=== PATIENT | female | born 1975 | race Caucasian/White ===

== ENCOUNTER 2018-08-12 12:09 | Observation (INO) ==
--- NOTE | 2018-08-11 13:25 | MH ---
cc: Stefano Castillo MD DATE OF ADMISSION: 08/12/2018 ADMITTING DIAGNOSIS: Menorrhagia, dysmenorrhea, and left hydrosalpinx. HISTORY OF PRESENT ILLNESS: The patient is a 43-year-old, , white female, para 4-0-2-3 with history of menstrual flow, menstrual pain refractory to medical therapy. Ultrasound obtained on 03/16/2018 had a uterus that measured 9.6 cm with a left hydrosalpinx. Her laboratory studies have been normal. Her Pap smear was normal. Her endometrial biopsy from 07/2017 was benign. She is now admitted for hysterectomy. PAST SURGICAL HISTORY: She had a LEEP procedure in 1999, normal Pap since that time. She had a right ectopic removed in 2007, she had a spontaneous in 2007, did not require D and C. She has had 4 term deliveries. In 1997 she had infant with trisomy 18 that shortly after delivery. ALLERGIES: PENICILLIN, DUST. TRANSFUSIONS: None. SOCIAL HISTORY: She is . She is employed at [employer]. Alcohol, tobacco, and drugs are none. FAMILY HISTORY: Noncontributory. REVIEW OF SYSTEMS: Negative. PHYSICAL EXAMINATION: GENERAL: This is a well-nourished, well-developed, white female. VITAL SIGNS: Stable. HEENT: Normal. CHEST: Clear. HEART: Regular rate. BREASTS: Symmetrical. ABDOMEN: Benign. PELVIC: Vagina is normal. Cervix normal. Uterus is enlarged, about 12 week size. Adnexa nonpalpable. ASSESSMENT: As above. PLAN: She underwent with removal of the dilated tube, ovarian sparing if normal. While in the office the risk and benefits and complications explained and accepted. Should she require a larger incision surgery, she is aware this would be a longer recovery. The patient would like to proceed. Stefano Castillo MD [facility]/ , 12:51 PM , 01:01 PM
[2018-08-12] MEDS ORDERED: Chlorhexidine Gluconate 2% 1 Pack (2 Cloths) TOPICAL SCH (12:56)
[2018-08-12] MEDS ORDERED: Metoprolol Tartrate 25 MG Tablet PO SCH (12:56)
[2018-08-12] MEDS ORDERED: Sodium Chlor 0.9% Inj 500 ML IV.SIG SCH (13:00)
[2018-08-12] MEDS ORDERED: Clindamycin 900 mg/NS Premix 900 MG/50 ML PIGGYBACK IV.SIG ONE (14:00)
[2018-08-12] MEDS ORDERED: Clindamycin 900 mg/NS Premix 900 MG/50 ML PIGGYBACK IV.SIG SCH (14:00)
[2018-08-12] MEDS ORDERED: Sugammadex Inj 200 MG/2 ML Vial IV.PUSH ONE (14:30)
[2018-08-12] MEDS ORDERED: Ketorolac Inj 30 MG/ML (IVP) Vial IV.PUSH ONE (14:52)
[2018-08-12] MEDS ORDERED: Lidocaine PF 1% Inj 5 ML Syringe INFILTRATN ONE (14:52)
[2018-08-12] MEDS ORDERED: Clindamycin Inj 900 MG/6 ML Vial ONE (14:55)
[2018-08-12] MEDS ORDERED: HYDROmorphone PF Inj 1 MG/ML Ampul IV.PUSH PRN (16:12)
[2018-08-12] MEDS ORDERED: Zolpidem Tartrate 5 MG Tablet PO PRN (16:12)
[2018-08-12] MEDS ORDERED: Bupivacaine Liposomal PF 1.3% Inj 20 ML Vial ONE (16:19)
[2018-08-12] MEDS ORDERED: Dextrose 5%/NaCl 0.45% Inj 1,000 ML IV.CONT SCH (16:30)
[2018-08-12] MEDS ORDERED: fentaNYL Citrate Inj 100 MCG/2 ML Ampul ONE (16:46)
[2018-08-12] MEDS ORDERED: Morphine Inj 4 MG/ML Vial ONE (16:46)
[2018-08-12 17:14] LABS: Hematocrit 28.5 % (35.0-46.0); Hemoglobin 9.9 gm/dL (11.6-15.3); Mean Corpuscular HGB Conc 34.9 % (32.0-36.0); Mean Platelet Volume 8.7 fL (7.0-11.0); Platelet Count 185 th/mm3 (150-450); Red Blood Count 3.32 mil/mm3 (4.00-5.30); Red Cell Distribution Width 12.9 % (11.6-17.2); White Blood Count 7.7 th/mm3 (4.0-11.0)
--- NOTE | 2018-08-12 17:24 | MP ---
cc: Stefano Castillo MD DATE OF OPERATION: 08/12/2018 PREOPERATIVE DIAGNOSES: 1. Menorrhagia. 2. Dysmenorrhea. 3. Left hydrosalpinx. POSTOPERATIVE DIAGNOSES: 1. Menorrhagia. 1. Dysmenorrhea. 2. Left hydrosalpinx. PROCEDURE PERFORMED: Lash with a bilateral salpingectomy. ANESTHESIA: General, ET. SURGEON: Stefano Castillo MD SUPERVISOR KNITTING: Davina ESTIMATED BLOOD LOSS: Approximately 100 mL FLUIDS: 11.7 liters crystalloid. OBJECTIVE FINDINGS: Following induction of adequate general endotracheal anesthesia, the patient was prepped and draped supine on the operating table in dorsal incision in a sterile fashion, with the bladder being deflected to the patient's abdomen through a 3 cm curved infraumbilical incision using a knife to cut down through the skin to the fascia. The fascia was opened transversely, rectus muscle split in the midline and the peritoneum opened sharply. The mini GelPort was placed. Laparoscope inserted. A 5 port placed in left lower quadrant, AirSeal in the right lower quadrant. Uterus was about 12-week size, globular, cul-de-sacs were clear. The majority of the right tube was absent from the fimbria to the isthmic region. Left tube was dilated with hydrosalpinx up to 2-3 cm. Both ovaries were normal. Cul-de-sacs were clear. Appendix was normal. Liver edge was normal. Working first on the left Harmonic scalpel was used to take left mesosalpinx left round ligament, left broad ligament, left side of the bladder flap and uterine vessels and the same on the right. Harmonic scalpel was used to amputate the fundus from the cervix. A pouch was used to extract the uterus and tubes intact. Irrigation was now performed. One area of bleeding on the left side of the cervix was controlled with a Quill stitch of 2-0 Vicryl. Low pressure test with no bleeding. The ureters were inspected for bilateral good peristalsis, operative site was now coated with Evicel. The GelPort was now removed. Peritoneum closed with a running 2-0 Vicryl, the fascia with a running locking stitch of 0 Vicryl corner to midline and tied, subcutaneous 3-0 Vicryl, skin with running subcuticular 3-0 Monocryl. The scope was now reinserted through the lower ports, used to check the sites. There was no entrapment of tissue at the port site. No bleeding. The scope was removed, gas was allowed to escape, and the small ports closed with 3-0 Monocryl. Dermabond applied. The patient was prepared for a TAP block. All counts were correct and she was awakened and taken to the recovery room in good condition. Stefano Castillo MD JAW/ct , 04:18 PM , 04:25 PM
[2018-08-12] MEDS ORDERED: Ketorolac Inj 30 MG/ML (IVP) Vial IV.PUSH SCH (18:00)
[2018-08-12] MEDS: Ketorolac Inj 30 MG/ML (IVP) Vial IV.PUSH SCH (22:00)
[2018-08-13 00:26] VITALS: O2SAT 100
[2018-08-13] MEDS: Docusate Sodium 100 MG Capsule PO SCH ×2 (03:01→08:44)
[2018-08-13] MEDS: Ketorolac Inj 30 MG/ML (IVP) Vial IV.PUSH SCH ×3 (04:08→15:56)
[2018-08-13 05:55] LABS: Baso % (Auto) 0.1 % (0.0-2.0); Hemoglobin 10.4 gm/dL (11.6-15.3); Lymph # (Auto) 0.5 th/mm3 (1.0-4.8); Lymph % (Auto) 6.5 % (9.0-44.0); Mean Corpuscular HGB Conc 34.8 % (32.0-36.0); Mean Corpuscular Hemoglobin 29.9 pg (27.0-34.0); Mean Corpuscular Volume 85.8 fL (80.0-100.0); Mean Platelet Volume 8.6 fL (7.0-11.0); Mono # (Auto) 0.4 th/mm3 (0.0-0.9); Mono % (Auto) 4.9 % (0.0-8.0); Neut # (Auto) 6.8 th/mm3 (1.8-7.7); Neut % (Auto) 88.5 % (16.0-70.0); Platelet Count 201 th/mm3 (150-450); White Blood Count 7.7 th/mm3 (4.0-11.0)
[2018-08-13 06:16] LABS: Anion Gap 8 meq/L (5-15); Blood Urea Nitrogen 6 mg/dL (7-18); Calcium 7.5 mg/dL (8.5-10.1); Carbon Dioxide 22.7 meq/L (21.0-32.0); Chloride 105 meq/L (98-107); Glomerular Filtration Rate Greater Than 89 mL/min (>89); Glucose,Random 105 mg/dL (74-106); Potassium 4.1 meq/L (3.5-5.1); Sodium 136 meq/L (136-145)
[2018-08-13 11:37] VITALS: BP 120/76; PULSE 68; RESP 20; TEMP 98
== END 2018-08-13 16:10 | disposition home or self-care (01) ==
LOC: HSDI 12:09 → HOR 12:09 → H1EA 17:57
PROVIDERS: ADMIT Obstetrics & Gynecology; ATTEND Obstetrics & Gynecology
PROC: LAPLASH (ICD-10-PCS; 2018-08-12 14:51)